=== PATIENT | female | born 1960 | race Caucasian/White ===

== ENCOUNTER 2017-11-12 05:41 | Day surgery (SDC) | payer BC, OTHER ==
[2017-11-11 11:55] LABS: BASOPHILS % (AUTO) 1.5 % (0.0-2.0); EOSINOPHILS % (AUTO) 3.3 % (0.0-3.0); HEMATOCRIT 40.6 % (37.0-47.0); HEMOGLOBIN 13.5 G/DL (12.0-16.0); LYMPHOCYTES % (AUTO) 28.3 % (20.0-45.0); MEAN CORPUSCULAR VOLUME 93 FL (80-99); MONOCYTES % (AUTO) 6.8 % (1.0-10.0); NEUTROPHILS % (AUTO) 60.2 % (45.0-75.0); PLATELET COUNT 357 K/UL (150-450); RED BLOOD COUNT 4.35 M/UL (4.20-5.40); RED CELL DISTRIBUTION WIDTH 11.7 % (11.6-14.8); WHITE BLOOD COUNT 4.5 K/UL (4.8-10.8)
[2017-11-11 12:16] LABS: ANION GAP 11 mmol/L (5-15); BLOOD UREA NITROGEN 16 mg/dL (7-18); CALCIUM 9.5 MG/DL (8.5-10.1); CARBON DIOXIDE 25 MMOL/L (21-32); CHLORIDE 105 MMOL/L (98-107); CREATININE 0.8 MG/DL (0.55-1.30); POTASSIUM 4.2 MMOL/L (3.5-5.1); SODIUM 141 MMOL/L (136-145)
[2017-11-12] VITALS (9 sets, daily range): BP systolic 98–138; BP diastolic 9–78
[~2017-11-12] VITALS: Ht 165.1 cm; Wt 62.6 kg
[2017-11-12] MEDS ORDERED: celeBREX 200mg Cap **SURGERY PATIENTS ONLY ORAL ONE (06:00)
[2017-11-12] MEDS ORDERED: oxyCONTIN 20mg tab ORAL ONE (06:00)
[2017-11-12] MEDS ORDERED: ceFAZolin 1gm in D5W 55ml IVP ONE (06:00)
--- NOTE | 2017-11-12 06:23 | Anethesia Preoperative Eval ---
Anesthesia Pre-op PMH/ROS General Date of Evaluation: Nov 12, 2017 Anesthesiologist: Ben ASA Score: ASA 1 Mallampati Score Class I : Soft palate, uvula, fauces, pillars visible Class II: Soft palate, uvula, fauces visible Class III: Soft palate, base of uvula visible Class IV: Only hard plate visible Mallampati Classification: Class II Surgeon: Brenda Diagnosis: Right hand small finger fracture Surgical Procedure: Right hand small finger ORIF Anesthesia History: none Family History: no anesthesia problems Allergies: Coded Allergies: No Known Allergies (Unverified , 11/11/17) Medications: see eMAR Past Medical History Cardiovascular: Denies: HTN, CAD, IA, valve dz, arrhythmia, other Pulmonary: Denies: asthma, COPD, JAZMYN, other Gastrointestinal/Genitourinary: Denies: GERD, CRI, ESRD, other Neurologic/Psychiatric: Denies: dementia, CVA, depression/anxiety, TIA, other Endocrine: Denies: DM, hypothyroidism, steroids, other HEENT: Denies: cataract (L), cataract (R), glaucoma, TRIBE (L), TRIBE (R), other Hematology/Immune: Denies: anemia, DVT, bleeding disorder, other Musculoskeletal/Integumentary: Denies: OA, RA, DJD, DDD, edema, other PSxH Narrative: Right wrist ganglion cyst, T&A Anesthesia Pre-op Phys. Exam Physician Exam see chart Constitutional: NAD Cardiovascular: RRR Respiratory: CTA Airway Exam Mallampati Score: Class II MO: full ROM: full Teeth: intact Anesthesia Pre-op A/P Labs Hematology Test 11/11/17 11:30 White Blood Count 4.5 K/UL (4.8-10.8) L Red Blood Count 4.35 M/UL (4.20-5.40) Hemoglobin 13.5 G/DL (12.0-16.0) Hematocrit 40.6 % (37.0-47.0) Mean Corpuscular Volume 93 FL (80-99) Mean Corpuscular Hemoglobin 31.0 PG (27.0-31.0) Mean Corpuscular Hemoglobin Concent 33.2 G/DL (32.0-36.0) Red Cell Distribution Width 11.7 % (11.6-14.8) Platelet Count 357 K/UL (150-450) Mean Platelet Volume 6.6 FL (6.5-10.1) Neutrophils (%) (Auto) 60.2 % (45.0-75.0) Lymphocytes (%) (Auto) 28.3 % (20.0-45.0) Monocytes (%) (Auto) 6.8 % (1.0-10.0) Eosinophils (%) (Auto) 3.3 % (0.0-3.0) H Basophils (%) (Auto) 1.5 % (0.0-2.0) Chemistry Test 11/11/17 11:30 Sodium Level 141 MMOL/L (136-145) Potassium Level 4.2 MMOL/L (3.5-5.1) Chloride Level 105 MMOL/L (98-107) Carbon Dioxide Level 25 MMOL/L (21-32) Anion Gap 11 mmol/L (5-15) Blood Urea Nitrogen 16 mg/dL (7-18) Creatinine 0.8 MG/DL (0.55-1.30) Estimat Glomerular Filtration Rate > 60 mL/min (>60) Glucose Level 92 MG/DL (74-106) Calcium Level 9.5 MG/DL (8.5-10.1) Studies Pre-op Studies: EKG - sr Risk Assessment & Plan Assessment: ASA I Plan: GA Status Change Before Surgery: No Pre-Antibiotics Drug: Ancef 1g Given Within 1 Hr of Incision: Yes Simona Soto MD Nov 12, 2017 06:23
[2017-11-12] MEDS ORDERED: fentaNYL 100 mcg/2 mL IV ONE (06:25)
[2017-11-12] MEDS ORDERED: Midazolam 2mg/2ml Inj ONE (06:25)
[2017-11-12] MEDS ORDERED: Lidocaine 1% MPF 10mg/ml 5ml ONE (06:25)
[2017-11-12] MEDS ORDERED: Propofol 200mg/20ml IV ONE (06:25)
[2017-11-12] MEDS ORDERED: EPINEPHrine 1mg/1ml Amp ONE (06:30)
[2017-11-12] MEDS ORDERED: Bacitracin 50000 Units Vial ONE (06:30)
[2017-11-12] MEDS ORDERED: Bupivacaine 0.5% Inj 30 ml vial INJ ONE ×2 (06:30→07:02)
[2017-11-12] MEDS ORDERED: Zemuron 50mg/5ml Inj IV ONE (06:33)
[2017-11-12] MEDS ORDERED: ZYRTEC10 MG ORAL (06:35)
[2017-11-12] MEDS ORDERED: LR 1000ml 1,000 ML IVLG SCH (06:40)
[2017-11-12] MEDS ORDERED: Hydromorphone 0.5mg/0.5ml inj IVP PRN (06:45)
[2017-11-12] MEDS ORDERED: fentaNYL 100 mcg/2 mL IV PRN (06:45)
[2017-11-12] MEDS ORDERED: DiphenhydrAMINE 50mg/ml Inj IVP PRN (06:45)
[2017-11-12] MEDS ORDERED: Ketorolac 30mg Inj IV PRN (06:45)
[2017-11-12] MEDS ORDERED: Labetalol 5mg/ml 20ml vial IV PRN (06:45)
[2017-11-12] MEDS ORDERED: Midazolam 2mg/2ml Inj IVP PRN (06:45)
[2017-11-12] MEDS ORDERED: Sterile Water Irrig 1000ml IRRIG ONE (07:00)
[2017-11-12] MEDS ORDERED: NS Irrig 1000ml ONE (07:00)
[2017-11-12] MEDS ORDERED: LR 1000ml ONE (07:00)
--- NOTE | 2017-11-12 07:03 | Pre-Procedure Note/Attestation ---
Pre-Procedure Note/Attestation Complete Prior to Procedure Planned Procedure: right Procedure Narrative: rt small finger ORIF Indications for Procedure Pre-Operative Diagnosis: rt small finger displaced fracture Attestation I attest that I discussed the nature of the procedure; its benefits; risks and complications; and alternatives (and the risks and benefits of such alternatives ), prior to the procedure, with the patient (or the patient's legal business services sales representative). I attest that, if there was a reasonable possibility of needing a blood transfusion, the patient (or the patient's legal business services sales representative) was given the [facility] standardized written summary, pursuant to the [place]le [place] Blood Safety Act ([place] Health and Safety Code # 1645, as amended). I attest that I re-evaluated the patient just prior to the surgery and that there has been no change in the patient's H&P, except as documented below: NONE Sander Gutierrez MD Nov 12, 2017 07:03
[2017-11-12] MEDS ORDERED: Hydrogen Peroxide 473ml Bottle TOPIC ONE (07:55)
--- NOTE | 2017-11-12 09:05 | Brief Operative Note ---
Immediate Post Operative Note Operative Note Chief Complaint: rt small finger fracture Pre-op Diagnosis: rt small finger middle phalanx fracture Procedure: rt small finger middle phalanx ORIF with percutaneous pinning Post-op Diagnosis: same as pre-op Findings: consistent w/pre-op dx studies Surgeon: md ermias Fastener Technologist: imelda eddy Anesthesiologist: md gabbie Anesthesia: general Specimen: none Complications: none Condition: stable Fluids: ns Estimated Blood Loss: minimal Drains: none Implant(s) used?: Yes - percutaneous pins x3 Vannessa Eddy Nov 12, 2017 09:05
--- NOTE | 2017-11-12 09:12 | Immediate Post-Op Evaluation ---
Immediate Post-Op Evalulation Immediate Post-Op Evalulation Procedure: Right hand small finger ORIF Date of Evaluation: Nov 12, 2017 Time of Evaluation: 09:10 IV Fluids: 800 Blood Products: 0 Estimated Blood Loss: min Urinary Output: 0 Blood Pressure Systolic: 98 Blood Pressure Diastolic: 52 Pulse Rate: 69 Respiratory Rate: 18 O2 Sat by Pulse Oximetry: 97 Temperature (Fahrenheit): 97.5 Pain Score (1-10): 0 Nausea: No Vomiting: No Complications 0 Patient Status: awake, reacts, patent, none Hydration Status: adequate Drug: Ancef 1g Given Within 1 Hr of Incision: Yes Time Given: 07:15 Simona Soto MD Nov 12, 2017 09:12
--- NOTE | 2017-11-12 09:13 | 48 Hour Post Anesthesia Eval ---
Post Anesthesia Evaluation Procedure: Right hand small finger ORIF Date of Evaluation: Nov 12, 2017 Airway: patent Nausea: No Vomiting: No Pain Intensity: 0 Hydration Status: adequate Cardiopulmonary Status: at baseline Mental Status/LOC: patient returned to baseline Post-Anesthesia Complications: 0 Follow-up care needed: ready to discharge Simona Soto MD Nov 12, 2017 09:13
--- NOTE | 2017-11-12 12:01 | Operative Note - Dictated ---
DATE OF OPERATION: 11/12/2017 PREOPERATIVE DIAGNOSIS: Right hand small finger middle phalanx fracture with angulation and rotational deformity. POSTOPERATIVE DIAGNOSIS: Right hand small finger proximal middle phalanx fracture with angulation and rotational deformity. PROCEDURE: Open reduction and internal fixation of the proximal middle phalanx fracture using 1.2-mm K-wire, total of 3 K-wires were placed in. SURGEON: Sander Gutierrez M.D. MEDICAL BILLING REPRESENTATIVE: Vannessa Dyer PA-C. ANESTHESIOLOGIST: Dr. Contreras. ANESTHESIA: LMA anesthesia combined with digital block. ESTIMATED BLOOD LOSS: 10 mL. TOURNIQUET TIME: 1 hour. COMPLICATIONS: None. BRIEF HISTORY: The patient is a pleasant 57-year-old female, who sustained a fracture of the middle phalanx. This was rotated and angulated. After full discussion of the risks and benefits of the surgery and complications associated with it including infection, bleeding, neurovascular complication, possibility of tendon injury, possibility of stiffness, possible need for further surgery, possible deformity, possible rotational deformity, further loss of reduction down the line, and need for further surgery down the line, she opted for surgical treatment as described above. OPERATIVE PROCEDURE: The patient was brought to the operative table and was placed supine. All pressure points were well padded. General LMA anesthesia was induced. The right hand was prepped and draped in usual sterile fashion and was exsanguinated. Tourniquet was inflated to 275 mmHg. An image intensifier was brought in. The fracture was initially attempted to be reduced closed. It would not reduce. Subsequently, a 0.62 K-wire was used to do a reduction. This was reduced anatomically. Subsequently, a reduction clamp was applied and 1.2-millimeter K-wires were placed, two from the radial side distally to proximally and one from ulnar side proximally to distally. One K wire was used as a buttress K-wire and went along the volar aspect of the fracture and captured the proximal fragment to provide a buttress. This provided excellent stability of the fracture and held the reduction anatomically. The rotation was neutral and the angulation was neutral. At this point, all wounds were thoroughly irrigated using copious amount of fluid. The pins were then cut and bent and capped. Sterile dressing was applied. Final x-rays were obtained. The patient was placed in an ulnar gutter splint and will be followed up in our office in approximately one week. The plan is to remove the pins in 4 weeks' time. All lap counts and instrument counts were correct. Sander Jaron Gutierrez DR: Skylar JOB#: [id number] CC: REAGAN
[2017-11-12] MEDS ORDERED: D5 1/2NS 1,000 ML IV SCH (13:00)
[2017-11-12] MEDS ORDERED: Tylenol #3 tab (300mg/30mg) ORAL PRN (13:00)
[2017-11-12] MEDS ORDERED: Norco 5mg/325mg tab ORAL PRN (13:00)
[2017-11-12] MEDS ORDERED: Morphine Sulfate 2mg/ml Inj IVP PRN (13:00)
--- NOTE | 2017-11-14 12:20 | Cardiology Report ---
APPROVED REPORT EKG Measurement Heart [id number] Normal sinus rhythm Nonspecific ST abnormality Abnormal ECG
--- NOTE | 2017-11-15 11:06 | Diagnostic Imaging Report ---
Indication: Intraoperative imaging, finger fracture Technique: Intraoperative images Comparison: none Findings: Intraoperative images document reduction of middle phalangeal fracture with multiple K wires Impression: Intraoperative images, as described
== END 2017-11-12 10:45 | disposition home or self-care (01) ==
LOC: SUR 05:41
DX: S62.626A Displaced fracture of middle phalanx of right little finger, initial encounter for closed fracture (principal)
CPT/HCPCS: 26735; 36415; 73140; 76001; 80048; 85025; 93005; J0171; J0690; J2250; J2704; J3010; J3490; J7120; Z7512; 94003; 94150

== ENCOUNTER 2018-01-19 10:00 | Outpatient (RCR) | payer OTHER ==
[~2018-01-19 10:00] MED LIST: ZYRTEC10 MG ORAL
== END 2018-01-30 | disposition home or self-care (01) ==
LOC: OTH 10:00
DX: S62.626D Displaced fracture of middle phalanx of right little finger, subsequent encounter for fracture with routine healing (principal)

== ENCOUNTER 2018-02-02 07:10 | Outpatient (RCR) | payer OTHER | END 2018-03-02 | disposition home or self-care (01) | LOC: OTH 07:10 | DX: S62.626D Displaced fracture of middle phalanx of right little finger, subsequent encounter for fracture with routine healing (principal) ==

== ENCOUNTER 2018-03-09 07:00 | Outpatient (RCR) | payer OTHER | END 2018-04-01 | disposition home or self-care (01) | LOC: OTH 07:00 | DX: S62.626D Displaced fracture of middle phalanx of right little finger, subsequent encounter for fracture with routine healing (principal) ==